=== PATIENT | male | born 1970 | race American Indian/Alaskan Native ===

== ENCOUNTER 2019-08-28 03:45 | Inpatient (IN) | payer OTHER ==
--- NOTE | 2019-08-28 04:52 | XRay Report ---
CHEST 2 VIEW INDICATION / CLINICAL INFORMATION: CP/Cough. COMPARISON: None available. FINDINGS: SUPPORT DEVICES: None. HEART / MEDIASTINUM: No significant abnormality. LUNGS / PLEURA: No significant pulmonary or pleural abnormality.. No pneumothorax. ADDITIONAL FINDINGS: No significant additional findings. IMPRESSION: 1. No acute findings. Signer Name: Thomas Cohen MD Signed: 08/28/2019 4:48 AM Workstation Name: [id number]
[2019-08-28] MEDS ORDERED: NITROGLYCERIN 2% OINT 1 GM TP ONE (06:54)
--- NOTE | 2019-08-28 07:09 | Emergency Department Report ---
ED Chest Pain HPI - General Chief Complaint: Chest Pain Stated Complaint: CHEST PAIN Time Seen by Provider: 08/28/19 06:41 Source: patient Mode of arrival: Ambulatory Limitations: No Limitations - History of Present Illness Initial Comments: This is a 49-year-old male who was apparently noncompliant with his blood pressure medicine. Alternatively, he states that he left his medicine in storage. He states that he spoke with the nurse at the [facility] about his dyspnea on exertion but did not go there concerning his lack of blood pressure medicine. He presents to the emergency department quite hypertensive. He states that he has had dyspnea on exertion for over 2 weeks. Is also had some intermittent chest pain which does not radiate and is not apparently pleuritic. He did not inform me of previous admissions for evaluation of chest pain or hypertension. Apparently he did have an anaphylactoid reaction to IV dye which he did not initially express when I informed him that we would proceed with a CT exam of his chest. In any case he does complain of intermittent and nonpleuritic chest pain. He has traveled recently to the [place]. He does not complain of leg pain or swelling. He states he has a nonproductive cough. His chest pain is not a prominent symptom now. MD Complaint: chest pain -: minutes(s), hour(s), week(s) Onset: during rest Pain Location: substernal Pain Radiation: none Severity: mild, moderate Quality: aching Consistency: intermittent, now resolved Improves With: nothing Worsens With: nothing Context: other (Noncompliance with blood pressure medication) re: dyspnea (Dyspnea mainly on exertion). denies: nausea, vomting, diaphoresis Other Symptoms: cough (Some nonproductive). denies: fever, syncope Treatments Prior to Arrival: none Aspirin use within the Past 7 Days: (0) No - Related Data Allergies Allergy/AdvReac Type Severity Reaction Status Date / Time IVP DYE Allergy Anaphylaxis Uncoded 08/28/19 04:03 Heart Score - HEART Score History: Moderately suspicious EKG: Non-specific Age: 45-65 Risk factors: > 3 risk factors or hx of atherosclerotic disease Troponin: < normal limit HEART Score: 5 - Critical Actions Critical Actions: 4-6 pts:12-16.6% risk of adverse cardiac event. Should be admitted ED Review of Systems ROS: Stated complaint: CHEST PAIN Other details as noted in HPI ED Past Medical Hx - Past Medical History Previous Medical History?: Yes Hx Hypertension: Yes - Surgical History Past Surgical History?: Yes Additional Surgical History: B/L knee , tonsilectomy - Social History Smoking Status: Never Smoker Substance Use Type: None ED Physical Exam - General Limitations: No Limitations ED Course Vital Signs 08/28/19 08/28/19 08/28/19 04:00 06:30 06:46 Temperature 97.4 F L Pulse Rate 98 H 76 87 Respiratory 20 16 23 Rate Blood Pressure 174/128 187/138 O2 Sat by Pulse 96 93 Oximetry - Reevaluation(s) Reevaluation #1: The patient has a history of anaphylactic reaction to contrast in the past. At this point I am getting a nuclear medicine study and a plain CT of his chest. I have also given him Decadron in case a contrast study is necessitated at a later time. The patient will be admitted to the hospital service for further care and evaluation. 08/28/19 09:12 Reevaluation #2: Plan hospitalist stated that the service was capped and to defer to the [address] Crenshaw will be admitting this patient. He has remained clinica lly stable. 08/28/19 11:08 KJ score - Kj Score Age > 65: (0) No Aspirin use within the Past 7 Days: (0) No 3 or more CAD Risk Factors: (1) Yes 2 or more Angina events in past 24 hrs: (0) No Known CAD with more than 50% Stenosis: (0) No Elevated Cardiac Markers: (0) No ST Deviation Greater than 0.5mm: (0) No KJ Score: 1 ED Medical Decision Making - Lab Data Result diagrams: 08/28/19 07:21 08/28/19 07:21 Laboratory Results - last 24 hr 08/28/19 08/28/19 08/28/19 07:21 07:21 07:21 WBC 5.2 RBC 4.75 Hgb 13.5 Hct 40.6 MCV 85 MCH 28 MCHC 33 RDW 14.7 Plt Count 169 Lymph % (Auto) 36.5 H [place] % (Auto) 6.5 Eos % (Auto) 0.5 Baso % (Auto) 0.4 Lymph # 1.9 [place] # 0.3 Eos # 0.0 Baso # 0.0 Seg Neutrophils % 56.1 Seg Neutrophils # 2.9 PT 15.6 H INR 1.22 H APTT 30.6 D-Dimer 1566.81 H Sodium 142 Potassium 4.4 Chloride 107.5 H Carbon Dioxide 19 L Anion Gap 20 BUN 18 Creatinine 1.2 Estimated GFR > 60 BUN/Creatinine Ratio 15 Glucose 106 H Calcium 9.1 Magnesium Total Bilirubin Direct Bilirubin Indirect Bilirubin AST ALT Alkaline Phosphatase Total Creatine Kinase CK-MB (CK-2) CK-MB (CK-2) Rel Index Troponin T < 0.010 NT-Pro-B Natriuret Pep Total Protein Albumin Albumin/Globulin Ratio Urine Color Urine Turbidity Urine pH Ur Specific [place] Urine Protein Urine Glucose (UA) Urine Ketones Urine Blood Urine Nitrite Urine Bilirubin Urine Urobilinogen Ur Leukocyte Esterase Urine WBC (Auto) Urine RBC (Auto) U Epithel Cells (Auto) Hyaline Casts Urine Mucus Urine Opiates Screen Urine Methadone Screen Ur Barbiturates Screen Ur Phencyclidine Scrn Ur Amphetamines Screen U Benzodiazepines Scrn Urine Cocaine Screen U Marijuana (THC) Screen Drugs of Abuse Note 08/28/19 08/28/19 08/28/19 07:21 08:00 08:00 WBC RBC Hgb Hct MCV MCH MCHC RDW Plt Count Lymph % (Auto) [place] % (Auto) Eos % (Auto) Baso % (Auto) Lymph # [place] # Eos # Baso # Seg Neutrophils % Seg Neutrophils # PT INR APTT D-Dimer Sodium Potassium Chloride Carbon Dioxide Anion Gap BUN Creatinine Estimated GFR BUN/Creatinine Ratio Glucose Calcium Magnesium 2.10 Total Bilirubin 1.60 H Direct Bilirubin 0.3 H Indirect Bilirubin 1.3 AST 44 H ALT 47 Alkaline Phosphatase 55 Total Creatine Kinase 86 CK-MB (CK-2) 2.4 CK-MB (CK-2) Rel Index 2.7 Troponin T NT-Pro-B Natriuret Pep 4820 H Total Protein 6.9 Albumin 4.0 Albumin/Globulin Ratio 1.4 Urine Color Yellow Urine Turbidity Clear Urine pH 5.0 Ur Specific [place] 1.026 Urine Protein 30 mg/dl Urine Glucose (UA) Neg Urine Ketones Neg Urine Blood Neg Urine Nitrite Neg Urine Bilirubin Neg Urine Urobilinogen < 2.0 Ur Leukocyte Esterase Neg Urine WBC (Auto) 6.0 Urine RBC (Auto) 1.0 U Epithel Cells (Auto) 1.0 Hyaline Casts 7 Urine Mucus Few Urine Opiates Screen Presumptive negative Urine Methadone Screen Presumptive negative Ur Barbiturates Screen Presumptive negative Ur Phencyclidine Scrn Presumptive negative Ur Amphetamines Screen Presumptive negative U Benzodiazepines Scrn Presumptive negative Urine Cocaine Screen Presumptive negative U Marijuana (THC) Screen Presumptive negative Drugs of Abuse Note Disclamer - EKG Data -: EKG Interpreted by Me EKG shows normal: sinus rhythm, axis, intervals, QRS complexes, ST-T waves Rate: normal - EKG Data Interpretation: LVH (associated repolarization abnormality) - Radiology Data Radiology results: report reviewed (Radiologist says no acute process. To me there is a suggestion of cardiomegaly and CHF.), image reviewed VQ scan was negative (low probability for PE).plan CT of the chest showed CHF and pleural effusions. Critical care attestation.: If time is entered above; I have spent that time in minutes in the direct care of this critically ill patient, excluding procedure time. ED Disposition Clinical Impression: Elevated d-dimer, Malignant hypertension Chest pain Qualifiers: Chest pain type: unspecified Qualified Code(s): R07.9 - Chest pain, unspecified Congestive heart failure, acute Qualifiers: Heart failure type: unspecified Qualified Code(s): I50.9 - Heart failure, unspecified Disposition: -09 OP ADMIT IP TO THIS HOSP Is pt being admited?: Yes Does the pt Need Aspirin: Yes Condition: Stable Instructions: Chest Pain (ED), Hypertension (ED) Referrals: PRIMARY CARE, [Primary Care Provider] - 3-5 Days Time of Disposition: 11:08
[2019-08-28 08:10] LABS: BUN/Creatinine Ratio 15; Blood Urea Nitrogen 18 mg/dL (9-20); Calcium 9.1 mg/dL (8.4-10.2); Hemolysis Index 14
[2019-08-28 08:12] LABS: Creatine Kinase MB 2.4 ng/mL (0.0-4.0)
[2019-08-28 08:14] LABS: Bilirubin,Direct 0.3 mg/dL (0-0.2)
[2019-08-28 08:18] LABS: Basophils % (Auto) 0.4 % (0.0-1.8); Eosinophils % (Auto) 0.5 % (0.0-4.3); Hematocrit 40.6 % (35.5-45.6); Hemoglobin 13.5 gm/dl (11.8-15.2); Lymphocytes # (Auto) 1.9 K/mm3 (1.2-5.4); Lymphocytes % (Auto) 36.5 % (13.4-35.0); Mean Corpuscular HGB Conc 33 % (32-34); Mean Corpuscular Volume 85 fl (84-94); Monocytes # (Auto) 0.3 K/mm3 (0.0-0.8); Monocytes % (Auto) 6.5 % (0.0-7.3); Platelet Count 169 K/mm3 (140-440); Red Blood Count 4.75 M/mm3 (3.65-5.03); Red Cell Distribution Width 14.7 % (13.2-15.2)
[2019-08-28 08:24] LABS: INR 1.22 (0.87-1.13)
[2019-08-28 08:25] LABS: Partial Thromboplastin Time 30.6 Sec. (24.2-36.6)
[2019-08-28] MEDS ORDERED: LORazepam 2 MG/ML VIAL ONE (08:25)
[2019-08-28] MEDS ORDERED: FUROSEMIDE 40 MG/4 ML INJ IV ONE (08:37)
[2019-08-28] MEDS ORDERED: dexAMETHasone 20 MG/5 ML VIAL IV ONE (08:45)
[2019-08-28 08:59] LABS: Bilirubin,Urine NEG (Negative); Blood,Urine NEG (Negative); Color,Urine Yellow (Yellow); Hyaline Casts,Urine 7 /LPF; Mucus,Urine FEW /HPF; Urobilinogen,Urine < 2.0 mg/dL (<2.0)
[2019-08-28 09:08] LABS: Amphetamine Screen,Urine PRESUMPTIVE NEGATIVE; Benzodiazepines Screen,Urine PRESUMPTIVE NEGATIVE; Cannabinoid Screen,Urine PRESUMPTIVE NEGATIVE; Cocaine Screen,Urine PRESUMPTIVE NEGATIVE; Methadone Screen,Urine PRESUMPTIVE NEGATIVE; Opiate Screen,Urine PRESUMPTIVE NEGATIVE
--- NOTE | 2019-08-28 09:36 | Cat Scan Report ---
CT CHEST WITHOUT CONTRAST INDICATION / CLINICAL INFORMATION: cp elevated dimer allergic to contrast. TECHNIQUE: Axial CT images were obtained through the chest without contrast. All CT scans at this location are p erformed using CT dose reduction for ALARA by means of automated exposure control. COMPARISON: No prior CT. Chest radiograph from same date. FINDINGS: HEART: Heart is moderately enlarged. No pericardial effusion. THORACIC AORTA: No significant abnormality. MEDIASTINUM and GELY: No significant abnormality. LUNGS: Mild bibasilar interstitial edema. PLEURA: Small bilateral pleural effusions, right greater than left. No pneumothorax. ADDITIONAL FINDINGS: None. UPPER ABDOMEN: No significant abnormality. SKELETAL SYSTEM: No significant abnormality. IMPRESSION: 1. Cardiomegaly with mild bibasilar edema and small bilateral pleural effusions. Signer Name: Daxa Abdi MD Signed: 08/28/2019 9:31 AM Workstation Name: [id number]
[2019-08-28] MEDS: ASPIRIN 325 MG TAB PO SCH (10:11)
--- NOTE | 2019-08-28 10:44 | Nuclear Medicine Report ---
NUCLEAR MEDICINE VENTILATION/PERFUSION LUNG SCAN INDICATION / CLINICAL INFORMATION: cp elevated dimer. TECHNIQUE: 22.1 mCi of Xe-133 were given by inhalation. 5.08 mCi of Tc-99m MAA were given by IV. COMPARISON: Chest radiograph dated 08/28/19. FINDINGS: VENTILATION: No significant ventilation defects. PERFUSION: No significant perfusion defects. ADDITIONAL FINDINGS: None. IMPRESSION: 1. Low probability for pulmonary embolism. Signer Name: Daxa Abdi MD Signed: 08/28/2019 10:40 AM Workstation Name: [id number]
--- NOTE | 2019-08-28 16:41 | History and Physical Report ---
History of Present Illness Date of examination: 08/28/19 Date of admission: 08/28/19 11:10 Chief complaint: Chest pain 1 day History of present illness: 49-year-old male who was apparently noncompliant with his blood pressure medicine. Alternatively, he states that he left his medicine in storage. He states that he spoke with the nurse at the [facility] about his dyspnea on exertion but did not go there concerning his lack of blood pressure medicine. He presents to the emergency department quite hypertensive. He states that he has had dyspnea on exertion for over 2 weeks. Is also had some intermittent chest pain which does not radiate and is not apparently pleuritic. Past Medical History Previous Medical History?: Yes Hypertension: Yes - Surgical History Past Surgical History?: Yes Additional Surgical History: B/L knee , tonsilectomy - Social History Smoking Status: Never Smoker Substance Use Type: None Review of Systems ROS: Stated complaint: CHEST PAIN Other details as noted in HPI Medications and Allergies Allergies Allergy/AdvReac Type Severity Reaction Status Date / Time IVP DYE Allergy Anaphylaxis Uncoded 08/28/19 04:03 Home Medications Medication Instructions Recorded Confirmed Last Taken Type No Known Home Medications [No 08/28/19 08/28/19 Unknown History Reported Home Medications] Active Meds: Active Medications Aspirin (Aspirin) 325 mg PO QDAY JAVON Last Admin: 08/28/19 10:11 Dose: 325 mg Documented by: Exam - Constitutional Vitals: Temp Pulse Resp BP Pulse Ox 98.0 F 82 20 142/102 96 08/28/19 12:54 08/28/19 12:54 08/28/19 12:54 08/28/19 12:54 08/28/19 12:54 General appearance: Present: no acute distress, well-nourished - EENT Eyes: Present: PERRL ENT: hearing intact, clear oral mucosa - Neck Neck: Present: supple, normal ROM - Respiratory Respiratory effort: normal Respiratory: bilateral: CTA - Cardiovascular Heart rate: 78 Rhythm: regular Heart Sounds: Present: S1 & S2. Absent: rub, click - Extremities Extremities: pulses symmetrical, No edema Peripheral Pulses: within normal limits - Abdominal General gastrointestinal: Present: soft, non-tender, non-distended, normal bowel sounds Male genitourinary: Present: normal - Integumentary Integumentary: Present: clear, warm, dry - Musculoskeletal Musculoskeletal: gait normal, strength equal bilaterally - Psychiatric Psychiatric: appropriate mood/affect, intact judgment & insight - Neurologic Neurologic: CNII-XII intact, moves all extremities JK score - Kj Score Age > 65: (0) No Aspirin use within the Past 7 Days: (0) No 3 or more CAD Risk Factors: (1) Yes 2 or more Angina events in past 24 hrs: (0) No Known CAD with more than 50% Stenosis: (0) No Elevated Cardiac Markers: (0) No ST Deviation Greater than 0.5mm: (0) No KJ Score: 1 Results - Labs CBC & Chem 7: 08/29/19 05:03 08/29/19 05:03 Labs: Laboratory Last Values WBC 5.2 K/mm3 (4.5-11.0) 08/28/19 07:21 RBC 4.75 M/mm3 (3.65-5.03) 08/28/19 07:21 Hgb 13.5 gm/dl (11.8-15.2) 08/28/19 07:21 Hct 40.6 % (35.5-45.6) 08/28/19 07:21 MCV 85 fl (84-94) 08/28/19 07:21 MCH 28 pg (28-32) 08/28/19 07:21 MCHC 33 % (32-34) 08/28/19 07:21 RDW 14.7 % (13.2-15.2) 08/28/19 07:21 Plt Count 169 K/mm3 (140-440) 08/28/19 07:21 Lymph % (Auto) 36.5 % (13.4-35.0) H 08/28/19 07:21 [place] % (Auto) 6.5 % (0.0-7.3) 08/28/19 07:21 Eos % (Auto) 0.5 % (0.0-4.3) 08/28/19 07:21 Baso % (Auto) 0.4 % (0.0-1.8) 08/28/19 07:21 Lymph # 1.9 K/mm3 (1.2-5.4) 08/28/19 07:21 [place] # 0.3 K/mm3 (0.0-0.8) 08/28/19 07:21 Eos # 0.0 K/mm3 (0.0-0.4) 08/28/19 07:21 Baso # 0.0 K/mm3 (0.0-0.1) 08/28/19 07:21 Seg Neutrophils % 56.1 % (40.0-70.0) 08/28/19 07:21 Seg Neutrophils # 2.9 K/mm3 (1.8-7.7) 08/28/19 07:21 PT 15.6 Sec. (12.2-14.9) H 08/28/19 07:21 INR 1.22 (0.87-1.13) H 08/28/19 07:21 APTT 30.6 Sec. (24.2-36.6) 08/28/19 07:21 D-Dimer 1566.81 ng/mlDDU (0-234) H 08/28/19 07:21 Sodium 142 mmol/L (137-145) 08/28/19 07:21 Potassium 4.4 mmol/L (3.6-5.0) 08/28/19 07:21 Chloride 107.5 mmol/L (98-107) H 08/28/19 07:21 Carbon Dioxide 19 mmol/L (22-30) L 08/28/19 07:21 Anion Gap 20 mmol/L 08/28/19 07:21 BUN 18 mg/dL (9-20) 08/28/19 07:21 Creatinine 1.2 mg/dL (0.8-1.5) 08/28/19 07:21 Estimated GFR > 60 ml/min 08/28/19 07:21 BUN/Creatinine Ratio 15 % 08/28/19 07:21 Glucose 106 mg/dL (75-100) H 08/28/19 07:21 Calcium 9.1 mg/dL (8.4-10.2) 08/28/19 07:21 Magnesium 2.10 mg/dL (1.7-2.3) 08/28/19 07:21 Total Bilirubin 1.60 mg/dL (0.1-1.2) H 08/28/19 07:21 Direct Bilirubin 0.3 mg/dL (0-0.2) H 08/28/19 07:21 Indirect Bilirubin 1.3 mg/dL 08/28/19 07:21 AST 44 units/L (5-40) H 08/28/19 07:21 ALT 47 units/L (7-56) 08/28/19 07:21 Alkaline Phosphatase 55 units/L (35-129) 08/28/19 07:21 Total Creatine Kinase 86 units/L (55-170) 08/28/19 07:21 CK-MB (CK-2) 2.4 ng/mL (0.0-4.0) 08/28/19 07:21 CK-MB (CK-2) Rel Index 2.7 (0-4) 08/28/19 07:21 Troponin T < 0.010 ng/mL (0.00-0.029) 08/28/19 12:38 NT-Pro-B Natriuret Pep 4820 pg/mL (0-900) H 08/28/19 07:21 Total Protein 6.9 g/dL (6.3-8.2) 08/28/19 07:21 Albumin 4.0 g/dL (3.9-5) 08/28/19 07:21 Albumin/Globulin Ratio 1.4 % 08/28/19 07:21 Urine Color Yellow (Yellow) 08/28/19 08:00 Urine Turbidity Clear (Clear) 08/28/19 08:00 Urine pH 5.0 (5.0-7.0) 08/28/19 08:00 Ur Specific [place] 1.026 (1.003-1.030) 08/28/19 08:00 Urine Protein 30 mg/dl mg/dL (Negative) 08/28/19 08:00 Urine Glucose (UA) Neg mg/dL (Negative) 08/28/19 08:00 Urine Ketones Neg mg/dL (Negative) 08/28/19 08:00 Urine Blood Neg (Negative) 08/28/19 08:00 Urine Nitrite Neg (Negative) 08/28/19 08:00 Urine Bilirubin Neg (Negative) 08/28/19 08:00 Urine Urobilinogen < 2.0 mg/dL (<2.0) 08/28/19 08:00 Ur Leukocyte Esterase Neg (Negative) 08/28/19 08:00 Urine WBC (Auto) 6.0 /HPF (0.0-6.0) 08/28/19 08:00 Urine RBC (Auto) 1.0 /HPF (0.0-6.0) 08/28/19 08:00 U Epithel Cells (Auto) 1.0 /HPF (0-13.0) 08/28/19 08:00 Hyaline Casts 7 /LPF 08/28/19 08:00 Urine Mucus Few /HPF 08/28/19 08:00 Urine Opiates Screen Presumptive negative 08/28/19 08:00 Urine Methadone Screen Presumptive negative 08/28/19 08:00 Ur Barbiturates Screen Presumptive negative 08/28/19 08:00 Ur Phencyclidine Scrn Presumptive negative 08/28/19 08:00 Ur Amphetamines Screen Presumptive negative 08/28/19 08:00 U Benzodiazepines Scrn Presumptive negative 08/28/19 08:00 Urine Cocaine Screen Presumptive negative 08/28/19 08:00 U Marijuana (THC) Screen Presumptive negative 08/28/19 08:00 Drugs of Abuse Note Disclamer 08/28/19 08:00 - Imaging and Cardiology EKG: report reviewed Assessment and Plan Advance Directives: Yes (FC) VTE prophylaxis?: Chemical Plan of care discussed with patient/family: Yes - Patient Problems (1) Chest pain Current Visit: Yes Status: Acute Qualifiers: Chest pain type: unspecified Qualified Code(s): R07.9 - Chest pain, unspecified Plan to address problem: For stress test on Friday (2) Malignant hypertension Current Visit: Yes Status: Acute Plan to address problem: Started on Valsartan and Coreg and IV Hydralazine prn (3) Congestive heart failure, acute Current Visit: Yes Status: Acute Qualifiers: Heart failure type: combined systolic and diastolic Qualified Code(s): I50. 41 - Acute combined systolic (congestive) and diastolic (congestive) heart failure Plan to address problem: Bibasilar edema on CT chest Will wait for ECHO results for EF IV lasix (4) DVT prophylaxis Current Visit: Yes Status: Acute Plan to address problem: On Heparin and GI prophylaxis
[2019-08-28] MEDS ORDERED: ONDANSETRON 4 MG/2 ML INJ IV PRN (22:41)
[2019-08-28] MEDS ORDERED: oxyCODONE /ACETAMINOPHEN 5-325MG TAB PO PRN (22:41)
[2019-08-28] MEDS ORDERED: ACETAMINOPHEN 325 MG TAB PO PRN (22:41)
[2019-08-28] MEDS ORDERED: HYDROmorphone 1 MG/1 ML INJ IV PRN (22:41)
[2019-08-28] MEDS: carvediloL 6.25 MG TAB PO SCH (23:27)
[2019-08-28] MEDS: VALSARTAN 160MG TAB PO SCH (23:27)
[2019-08-29 05:40] LABS: Basophils % (Auto) 0.1 % (0.0-1.8); Hematocrit 36.9 % (35.5-45.6); Hemoglobin 12.3 gm/dl (11.8-15.2); Lymphocytes # (Auto) 0.9 K/mm3 (1.2-5.4); Lymphocytes % (Auto) 11.1 % (13.4-35.0); Mean Corpuscular HGB Conc 33 % (32-34); Mean Corpuscular Volume 85 fl (84-94); Monocytes # (Auto) 0.5 K/mm3 (0.0-0.8); Monocytes % (Auto) 6.6 % (0.0-7.3); Platelet Count 167 K/mm3 (140-440); Red Blood Count 4.35 M/mm3 (3.65-5.03); Red Cell Distribution Width 14.6 % (13.2-15.2)
[2019-08-29 06:01] LABS: Alanine Aminotransferase 38 units/L (7-56); Albumin 3.6 g/dL (3.9-5); BUN/Creatinine Ratio 20; Blood Urea Nitrogen 26 mg/dL (9-20); Calcium 8.9 mg/dL (8.4-10.2); Hemolysis Index 12
[2019-08-29] MEDS: VALSARTAN 160MG TAB PO SCH (10:26)
[2019-08-29] MEDS: FAMOTIDINE 20 MG/2 ML INJ IV SCH ×2 (10:26→21:14)
[2019-08-29] MEDS: ASPIRIN 325 MG TAB PO SCH (10:26)
[2019-08-29] MEDS: carvediloL 6.25 MG TAB PO SCH ×2 (10:26→21:14)
[2019-08-29] MEDS ORDERED: FLU VACC QUAD 2019-20 (3 YR UP)/PF 60 MCG/0.5 ML SYRINGE IM ONE (12:00)
--- NOTE | 2019-08-29 12:52 | Event Note ---
Date: 08/29/19 Cardiology note dictated 1. Chest pain atypical 2. Hypertension uncontrolled patient is noncompliant 3. Difficulty in breathing 4. Ventricular tachycardia 5. Congestive heart failure Patient is seen for cardiac evaluation. Plan is to give intravenous diuretics, add amlodipine and monitor his blood pressure closely. If stable will obtain a nuclear stress test as well as echocardiogram for further cardiac evaluation. Thank you Dr. Correia for allowing me to participate in the care of this gentleman Dr. VITO Pettit
[2019-08-29] MEDS: FUROSEMIDE 40 MG/4 ML INJ IV SCH (14:25)
[2019-08-29] MEDS: amLODIPine 10 MG TAB PO SCH (14:25)
[2019-08-29] MEDS: guaiFENesin 100 MG/5 ML ORAL LIQD PO PRN ×2 (14:29→21:14)
[2019-08-29] MEDS ORDERED: VALSARTAN 160MG TAB PO SCH ×2 (15:00→22:00)
--- NOTE | 2019-08-29 15:30 | Consultation ---
REASON FOR EVALUATION: Chest pain and difficulty in breathing. HISTORY OF PRESENT ILLNESS: This 49-year-old gentleman is here because of difficulty in breathing that started about 4-6 weeks ago and this has been mostly on exertion and particularly when he has to walk against gradient. The patient is known to have a longstanding history of hypertension and he has been noncompliant with medications. The patient also complained about chest discomfort, which was somewhat atypical. It is intermittent and unrelated to any particular activity. In the Emergency Room, he had a lung scan, which was noted to be negative for pulmonary embolism. The patient had no previous myocardial infarction, congestive heart failure, cardiac murmur or rheumatic fever, or cardiomegaly. The patient claims that until about a month and a half ago, he was in good health with no significant problems and he was exercising regularly. SOCIAL HISTORY: The patient is a nonsmoker and nonalcoholic. FAMILY HISTORY: Negative for coronary artery disease, but positive for hypertension and cerebrovascular accident. REVIEW OF SYSTEMS: HEAD, EYES, EARS, NOSE, THROAT: No symptoms. ENDOCRINE: No history of diabetes. GASTROINTESTINAL: No abdominal pain, nausea, or vomiting. Bowel habits have been regular. No history of peptic ulcer disease or gallbladder disease. GENITOURINARY: No symptoms. CENTRAL NERVOUS SYSTEM: No symptoms. LOCOMOTOR: No symptoms. PHYSICAL EXAMINATION: GENERAL: Adult gentleman, well built, well nourished, in no acute distress. VITAL SIGNS: Blood pressure 160/111, pulse 77, ____ 98. HEAD, EYES, EARS, NOSE AND THROAT: Unremarkable. NECK: Supple. No thyromegaly. Both carotids are palpable and equal. Neck veins are flat. CHEST: Symmetrical. LUNGS: Clear. HEART: S1 and S2 are heard well. No S3. ABDOMEN: Soft, nontender, no hepatosplenomegaly. EXTREMITIES: No edema or calf tenderness. LABORATORY DATA: EKG sinus rhythm, borderline AL interval, nonspecific ST-T changes, left ventricular hypertrophy. Rhythm strips are reviewed. The patient had a 16 beat run of ventricular tachycardia earlier this morning. Chest CT, cardiomegaly with mild bibasilar edema and small bilateral effusions. Lung scan negative for pulmonary embolism. Chest x-ray, no acute findings. WBC 5.2, hemoglobin 13.5, hematocrit 40.6. Sodium 142, potassium 4.4, blood sugar 106, bilirubin 1.6, BUN 18, creatinine 1.2. BNP 4820. IMPRESSION: 1. Chest pain, somewhat atypical. Pulmonary embolism was ruled out. 2. Uncontrolled hypertension. 3. Exertional dyspnea, etiology uncertain. 4. Medication noncompliance. 5. Congestive heart failure. 6. Ventricular tachycardia. TREATMENT: The patient is seen for cardiac evaluation. The patient is known to have chronic hypertension, which is uncontrolled and he has difficulty in breathing. Chest pain itself is somewhat atypical. He also had a run of ventricular tachycardia. Plan is to obtain serum magnesium level, echocardiogram and a nuclear stress test for further cardiac evaluation. We need to adjust the medications to improve his blood pressure. Plan is to add intravenous diuretics also and the patient will be monitored closely. The patient will be monitored and followed closely with you. Thank you, Dr. Correia for allowing me to participate in the care of this gentleman. JOB# [id number] KIRA/NTS
[2019-08-30] MEDS ORDERED: REGADENOSON 0.4 MG/5 ML INJ IV ONE (07:05)
--- NOTE | 2019-08-30 07:36 | Progress Note ---
Assessment and Plan - Patient Problems (1) Chest pain Current Visit: Yes Status: Acute Qualifiers: Chest pain type: unspecified Qualified Code(s): R07.9 - Chest pain, unspecified Plan to address problem: For stress test on Friday (2) Malignant hypertension Current Visit: Yes Status: Acute Plan to address problem: Started on Valsartan and Coreg and IV Hydralazine prn (3) Congestive heart failure, acute Current Visit: Yes Status: Acute Qualifiers: Heart failure type: combined systolic and diastolic Qualified Code(s): I50.41 - Acute combined systolic (congestive) and diastolic (congestive) heart failure Plan to address problem: Bibasilar edema on CT chest Will wait for ECHO results for EF IV lasix (4) DVT prophylaxis Current Visit: Yes Status: Acute Plan to address problem: On Heparin and GI prophylaxis Subjective Date of service: 08/29/19 Principal diagnosis: Chest pain,CHF and Htn energency Interval history: Sx better Objective - Constitutional Vitals: Vital Signs - 12hr 08/29/19 08/29/19 08/29/19 19:39 21:13 21:14 Temperature 98.0 F Pulse Rate 98 H 98 H 98 H Respiratory 18 Rate Blood Pressure 115/72 115/72 115/72 O2 Sat by Pulse 95 Oximetry 08/29/19 08/29/19 08/30/19 22:00 23:22 03:40 Temperature 98.0 F 98.0 F Pulse Rate 97 H 82 72 Respiratory 18 18 Rate Blood Pressure 125/85 116/83 O2 Sat by Pulse 96 96 Oximetry General appearance: Present: no acute distress, well-nourished - EENT Eyes: PERRL, EOM intact ENT: hearing intact, clear oral mucosa Ears: bilateral: normal - Neck Neck: supple, normal ROM - Respiratory Respiratory effort: normal Respiratory: bilateral: CTA - Breasts Breasts: normal - Cardiovascular Heart rate: 78 Rhythm: regular Heart Sounds: Present: S1 & S2. Absent: gallop, rub Extremities: pulses intact, No edema, normal color, Full ROM - Gastrointestinal General gastrointestinal: Present: soft, non-tender, non-distended, normal bowel sounds - Genitourinary Male genitourinary: normal - Integumentary Integumentary: clear, warm, dry - Musculoskeletal Musculoskeletal: 1, strength equal bilaterally - Neurologic Neurologic: moves all extremities - Psychiatric Psychiatric: memory intact, appropriate mood/affect, intact judgment & insight - Labs CBC & Chem 7: 08/29/19 05:03 08/29/19 05:03
[2019-08-30 09:53] LABS: BUN/Creatinine Ratio 20; Blood Urea Nitrogen 22 mg/dL (9-20); Calcium 8.7 mg/dL (8.4-10.2); Hemolysis Index 2
--- NOTE | 2019-08-30 11:21 | Progress Note ---
Assessment and Plan DDimer elevated - VQ scan low prob for PE. Cont present cardiac management, including coreg, losartan, IV lasix. S/p lexiscan MPI stress test today which showed small inferior reversibility, EF 27%. Echo preliminarily shows EF ~35%. Coronary angiography recommended for definitive diagnosis. Indications, potential risks and benefits of LHC reviewed with pt and he is agreeable to proceed with LHC in AM. NPO after MN. Additionally, cardiac defibrillator recommended in setting of CMP and NSVT. Pt currently declines LifeVest and states he would like to re-evaluate AICD candidacy as OP. The patient has been seen in conjunction with Dr. Williamson who agrees with the assessment and plan of care. - Patient Problems (1) Acute heart failure Current Visit: Yes Status: Acute (2) NSVT (nonsustained ventricular tachycardia) Current Visit: Yes Status: Acute (3) Chest pain Current Visit: Yes Status: Resolved Qualifiers: Chest pain type: unspecified Qualified Code(s): R07.9 - Chest pain, unspecified (4) Uncontrolled hypertension Current Visit: Yes Status: Chronic (5) Sleep apnea Current Visit: Yes Status: Chronic Subjective Date of service: 08/30/19 Principal diagnosis: Chest pain,CHF and Htn energency Interval history: pt resting in bed, states SOB is improving, no current chest pain. for stress test today. tele reviewed - in SR HR 80s with 16 beat run NSVT noted overnight, pt asymptomatic. Objective Last Vital Signs Temp 98.0 F 08/30/19 03:40 Pulse 72 08/30/19 03:40 Resp 18 08/30/19 08:07 BP 116/83 08/30/19 03:40 Pulse Ox 96 08/30/19 03:40 - Labs and Meds Comprehensive Metabolic Panel 08/30/19 Range/Units 09:00 Sodium 142 (137-145) mmol/L Potassium 4.0 (3.6-5.0) mmol/L Chloride 104.8 (98-107) mmol/L Carbon Dioxide 23 (22-30) mmol/L BUN 22 H (9-20) mg/dL Creatinine 1.1 (0.8-1.5) mg/dL Glucose 98 (75-100) mg/dL Calcium 8.7 (8.4-10.2) mg/dL - Imaging and Cardiology EKG: report reviewed, image reviewed Pharmacologic stress test: pending Echo: pending - Telemetry EKG Rhythm: Sinus Rhythm
[2019-08-30] MEDS: carvediloL 6.25 MG TAB PO SCH ×2 (12:43→22:34)
[2019-08-30] MEDS: ASPIRIN 325 MG TAB PO SCH (12:43)
[2019-08-30] MEDS: amLODIPine 10 MG TAB PO SCH (12:43)
[2019-08-30] MEDS: FAMOTIDINE 20 MG/2 ML INJ IV SCH ×2 (12:44→22:33)
[2019-08-30] MEDS: FUROSEMIDE 40 MG/4 ML INJ IV SCH (12:44)
--- NOTE | 2019-08-30 19:10 | Progress Note ---
Assessment and Plan Assessment and plan: 49-year-old male who was apparently noncompliant with his blood pressure medicine. Alternatively, he states that he left his medicine in storage. He states that he spoke with the nurse at the [facility] about his dyspnea on exertion but did not go there concerning his lack of blood pressure medicine. He presents to the emergency department quite hypertensive. He states that he has had dyspnea on exertion for over 2 weeks. Is also had some intermittent chest pain which does not radiate and is not apparently pleuritic. CT Chest: Cardiomegaly with mild bibasilar edema and small bilateral pleural effusions. CXR: No acute findings. EF 30-35% Diffused hypo DDimer elevated - VQ scan low prob for PE. S/p lexiscan MPI stress test today which showed small inferior reversibility, EF 27%. Echo preliminarily shows EF ~35% * Discussed with cardiology based on stress test result plan for Coronary angiography * Cont present cardiac management, including coreg, losartan, IV lasix. * Per cardiology cardiac defibrillator recommended in setting of CMP and NSVT. Pt currently declines LifeVest and states he would like to re-evaluate AICD candidacy as OP. * Daily weight, I/O * Replace electrolyte * Continue to require inhouse stay for planned cardiac cath. (1) Acute heart failure presumed systolic (2) NSVT (nonsustained ventricular tachycardia) (3) Atypical Chest pain (4) Uncontrolled hypertension (5) Sleep apnea History Interval history: Patient seen and examined this morning resting comfortably Hospitalist Physical - Physical exam Narrative exam: General appearance: Present: no acute distress, well-nourished - EENT Eyes: PERRL, EOM intact ENT: hearing intact, clear oral mucosa Ears: bilateral: normal - Neck Neck: supple, normal ROM - Respiratory Respiratory effort: normal Respiratory: bilateral: CTA - Breasts Breasts: normal - Cardiovascular Heart rate: 78 Rhythm: regular Heart Sounds: Present: S1 & S2. Absent: gallop, rub Extremities: pulses intact, No edema, normal color, Full ROM - Gastrointestinal General gastrointestinal: Present: soft, non-tender, non-distended, normal bowel sounds - Genitourinary Male genitourinary: normal - Integumentary Integumentary: clear, warm, dry - Musculoskeletal Musculoskeletal: 1, strength equal bilaterally - Neurologic Neurologic: moves all extremities - Psychiatric Psychiatric: memory intact, appropriate mood/affect, intact judgment & insight - Constitutional Vitals: Temp Pulse Resp BP Pulse Ox 98.6 F 100 H 18 150/108 99 08/30/19 09:05 08/30/19 12:43 08/30/19 12:42 08/30/19 12:43 08/30/19 12:42 General appearance: Present: no acute distress, well-nourished KJ score - Kj Score Age > 65: (0) No Aspirin use within the Past 7 Days: (0) No 3 or more CAD Risk Factors: (1) Yes 2 or more Angina events in past 24 hrs: (0) No Known CAD with more than 50% Stenosis: (0) No Elevated Cardiac Markers: (0) No ST Deviation Greater than 0.5mm: (0) No KJ Score: 1 Results - Labs CBC & Chem 7: 08/29/19 05:03 08/30/19 09:00 Labs: Laboratory Last Values WBC 7.8 K/mm3 (4.5-11.0) 08/29/19 05:03 RBC 4.35 M/mm3 (3.65-5.03) 08/29/19 05:03 Hgb 12.3 gm/dl (11.8-15.2) 08/29/19 05:03 Hct 36.9 % (35.5-45.6) 08/29/19 05:03 MCV 85 fl (84-94) 08/29/19 05:03 MCH 28 pg (28-32) 08/29/19 05:03 MCHC 33 % (32-34) 08/29/19 05:03 RDW 14.6 % (13.2-15.2) 08/29/19 05:03 Plt Count 167 K/mm3 (140-440) 08/29/19 05:03 Lymph % (Auto) 11.1 % (13.4-35.0) L 08/29/19 05:03 [place] % (Auto) 6.6 % (0.0-7.3) 08/29/19 05:03 Eos % (Auto) 0.0 % (0.0-4.3) 08/29/19 05:03 Baso % (Auto) 0.1 % (0.0-1.8) 08/29/19 05:03 Lymph # 0.9 K/mm3 (1.2-5.4) L 08/29/19 05:03 [place] # 0.5 K/mm3 (0.0-0.8) 08/29/19 05:03 Eos # 0.0 K/mm3 (0.0-0.4) 08/29/19 05:03 Baso # 0.0 K/mm3 (0.0-0.1) 08/29/19 05:03 Seg Neutrophils % 82.2 % (40.0-70.0) H 08/29/19 05:03 Seg Neutrophils # 6.4 K/mm3 (1.8-7.7) 08/29/19 05:03 PT 15.6 Sec. (12.2-14.9) H 08/28/19 07:21 INR 1.22 (0.87-1.13) H 08/28/19 07:21 APTT 30.6 Sec. (24.2-36.6) 08/28/19 07:21 D-Dimer 1566.81 ng/mlDDU (0-234) H 08/28/19 07:21 Sodium 142 mmol/L (137-145) 08/30/19 09:00 Potassium 4.0 mmol/L (3.6-5.0) 08/30/19 09:00 Chloride 104.8 mmol/L (98-107) 08/30/19 09:00 Carbon Dioxide 23 mmol/L (22-30) 08/30/19 09:00 Anion Gap 18 mmol/L 08/30/19 09:00 BUN 22 mg/dL (9-20) H 08/30/19 09:00 Creatinine 1.1 mg/dL (0.8-1.5) 08/30/19 09:00 Estimated GFR > 60 ml/min 08/30/19 09:00 BUN/Creatinine Ratio 20 % 08/30/19 09:00 Glucose 98 mg/dL (75-100) 08/30/19 09:00 Hemoglobin A1c 5.7 % (4-6) 08/29/19 05:03 Calcium 8.7 mg/dL (8.4-10.2) 08/30/19 09:00 Magnesium 2.10 mg/dL (1.7-2.3) 08/28/19 07:21 Total Bilirubin 1.00 mg/dL (0.1-1.2) 08/29/19 05:03 Direct Bilirubin 0.3 mg/dL (0-0.2) H 08/28/19 07:21 Indirect Bilirubin 1.3 mg/dL 08/28/19 07:21 AST 28 units/L (5-40) 08/29/19 05:03 ALT 38 units/L (7-56) 08/29/19 05:03 Alkaline Phosphatase 60 units/L (35-129) 08/29/19 05:03 Total Creatine Kinase 86 units/L (55-170) 08/28/19 07:21 CK-MB (CK-2) 2.4 ng/mL (0.0-4.0) 08/28/19 07:21 CK-MB (CK-2) Rel Index 2.7 (0-4) 08/28/19 07:21 Troponin T < 0.010 ng/mL (0.00-0.029) 08/29/19 05:03 NT-Pro-B Natriuret Pep 4820 pg/mL (0-900) H 08/28/19 07:21 Total Protein 6.1 g/dL (6.3-8.2) L 08/29/19 05:03 Albumin 3.6 g/dL (3.9-5) L 08/29/19 05:03 Albumin/Globulin Ratio 1.4 % 08/29/19 05:03 Urine Color Yellow (Yellow) 08/28/19 08:00 Urine Turbidity Clear (Clear) 08/28/19 08:00 Urine pH 5.0 (5.0-7.0) 08/28/19 08:00 Ur Specific [place] 1.026 (1.003-1.030) 08/28/19 08:00 Urine Protein 30 mg/dl mg/dL (Negative) 08/28/19 08:00 Urine Glucose (UA) Neg mg/dL (Negative) 08/28/19 08:00 Urine Ketones Neg mg/dL (Negative) 08/28/19 08:00 Urine Blood Neg (Negative) 08/28/19 08:00 Urine Nitrite Neg (Negative) 08/28/19 08:00 Urine Bilirubin Neg (Negative) 08/28/19 08:00 Urine Urobilinogen < 2.0 mg/dL (<2.0) 08/28/19 08:00 Ur Leukocyte Esterase Neg (Negative) 08/28/19 08:00 Urine WBC (Auto) 6.0 /HPF (0.0-6.0) 08/28/19 08:00 Urine RBC (Auto) 1.0 /HPF (0.0-6.0) 08/28/19 08:00 U Epithel Cells (Auto) 1.0 /HPF (0-13.0) 08/28/19 08:00 Hyaline Casts 7 /LPF 08/28/19 08:00 Urine Mucus Few /HPF 08/28/19 08:00 Urine Opiates Screen Presumptive negative 08/28/19 08:00 Urine Methadone Screen Presumptive negative 08/28/19 08:00 Ur Barbiturates Screen Presumptive negative 08/28/19 08:00 Ur Phencyclidine Scrn Presumptive negative 08/28/19 08:00 Ur Amphetamines Screen Presumptive negative 08/28/19 08:00 U Benzodiazepines Scrn Presumptive negative 08/28/19 08:00 Urine Cocaine Screen Presumptive negative 08/28/19 08:00 U Marijuana (THC) Screen Presumptive negative 08/28/19 08:00 Drugs of Abuse Note Disclamer 08/28/19 08:00 Active Medications - Current Medications Current Medications: Generic Name Dose Route Start Last Admin Trade Name Freq PRN Reason Stop Dose Admin Acetaminophen 650 mg 08/28/19 22:41 08/29/19 19:42 Tylenol PO 650 mg Q4H PRN Administration Pain MILD(1-3)/Fever >100.5/BELLA Amlodipine Besylate 10 mg 08/29/19 13:00 08/30/19 12:43 Amlodipine PO 10 mg QDAY JAVON Administration Aspirin 325 mg 08/28/19 10:00 08/30/19 12:43 Aspirin PO 325 mg QDAY JAVON Administration Carvedilol 12.5 mg 08/30/19 12:49 Coreg PO BID JAVON Famotidine 20 mg 08/29/19 10:00 08/30/19 12:44 Pepcid IV 20 mg BID JAVON Administration Furosemide 40 mg 08/29/19 13:00 08/30/19 12:44 Lasix IV 40 mg QDAY JAVON Administration Guaifenesin 200 mg 08/29/19 10:24 08/29/19 21:14 Robitussin PO 200 mg Q4H PRN Administration Cough Hydromorphone HCl 0.5 mg 08/28/19 22:41 Dilaudid IV Q3H PRN Pain , Severe (7-10) Sodium Chloride 500 mls @ 50 mls/hr 08/30/19 13:00 Nacl 0.9% 500 Ml IV 08/30/19 22:59 DIRECT JAVON Losartan Potassium 50 mg 08/31/19 10:00 Cozaar PO QDAY JAVON Ondansetron HCl 4 mg 08/28/19 22:41 Zofran IV Q8H PRN Nausea And Vomiting Oxycodone/Acetaminophen 1 tab 08/28/19 22:41 Percocet 5/325 PO Q6H PRN Pain, Moderate (4-6) Sodium Chloride 10 ml 08/28/19 23:00 08/30/19 12:44 Sodium Chloride Flush Syringe 10 Ml IV 10 ml BID JAVON Administration Sodium Chloride 10 ml 08/28/19 22:41 Sodium Chloride Flush Syringe 10 Ml IV PRN PRN LINE FLUSH
--- NOTE | 2019-08-30 22:16 | Treadmill Report ---
NUCLEAR CARDIAC IMAGING REPORT INDICATION FOR PROCEDURE: Chest pain and shortness of breath, nonsustained ventricular tachycardia. Informed consent was obtained. Treadmill stress testing was performed per protocol. Rest and stress nuclear cardiac imaging were performed following intravenous administration of technetium-99m Myoview per protocol. Gated SPECT imaging demonstrates a post-stress left ventricular ejection fraction of 27% with diffuse left ventricular hypokinesis. The left ventricle is dilated with an end systolic volume of 226 mL. Myocardial perfusion imaging demonstrates no significant cavity change between stress and rest. There is a small to medium size moderately intense partially reversible inferior wall perfusion abnormality. Nuclear cardiac imaging demonstrates severe post-stress left ventricular systolic dysfunction with evidence suggestive of a region of inferior wall myocardial ischemia. The study is consistent with a dilated cardiomyopathy, probably nonischemic in origin. However, underlying coronary artery disease cannot be definitely excluded. JOB# [id number] OCTAVIO/STEPHANIE
[2019-08-30] MEDS: guaiFENesin 100 MG/5 ML ORAL LIQD PO PRN (22:33)
[2019-08-31 05:30] LABS: Basophils % (Auto) 0.5 % (0.0-1.8); Eosinophils # (Auto) 0.1 K/mm3 (0.0-0.4); Eosinophils % (Auto) 2.3 % (0.0-4.3); Hemoglobin 12.3 gm/dl (11.8-15.2); Lymphocytes # (Auto) 1.7 K/mm3 (1.2-5.4); Mean Corpuscular HGB Conc 33 % (32-34); Mean Corpuscular Volume 85 fl (84-94); Monocytes # (Auto) 0.6 K/mm3 (0.0-0.8); Monocytes % (Auto) 8.5 % (0.0-7.3); Platelet Count 152 K/mm3 (140-440); Red Blood Count 4.36 M/mm3 (3.65-5.03); Red Cell Distribution Width 15.1 % (13.2-15.2)
[2019-08-31 05:32] LABS: INR 1.18 (0.87-1.13)
[2019-08-31 05:43] LABS: BUN/Creatinine Ratio 18; Blood Urea Nitrogen 20 mg/dL (9-20); Calcium 8.6 mg/dL (8.4-10.2); Hemolysis Index 19
[2019-08-31] MEDS ORDERED: HYDROCORTISONE SOD SUCC 100 MG/2 ML VIAL IV ONE (06:51)
[2019-08-31] MEDS ORDERED: diphenhydrAMINE 50 MG/ML VIAL IV NR (06:52)
[2019-08-31] MEDS ORDERED: FAMOTIDINE 20 MG/2 ML INJ IV ONE (06:59)
[2019-08-31] MEDS ORDERED: HYDROCORTISONE SOD SUCC 100 MG/2 ML VIAL ONE (06:59)
[2019-08-31] MEDS ORDERED: SODIUM CHLORIDE 0.9% 500 ML 500 ML IV SCH (07:00)
[2019-08-31] MEDS ORDERED: ASPIRIN 325 MG TAB ONE (07:04)
[2019-08-31] MEDS ORDERED: HEPARIN/NS 5000 UNIT/500ML 1,000 ML IR ONE (07:07)
[2019-08-31] MEDS ORDERED: HEPARIN 10,000 UNITS/10 ML VIAL ONE (07:07)
[2019-08-31] MEDS ORDERED: NITROGLYCERIN SYRINGE 0 ML ONE (07:08)
[2019-08-31] MEDS: ASPIRIN 325 MG TAB PO SCH ×2 (07:09→10:32)
[2019-08-31] MEDS: FAMOTIDINE 20 MG/2 ML INJ IV SCH ×3 (07:10→21:49)
[2019-08-31] MEDS: SODIUM CHLORIDE 0.9% 500 ML 500 ML IV SCH ×2 (07:15→07:50)
[2019-08-31] MEDS: MIDAZOLAM 2 MG/2 ML INJ ONE ×2 (07:53→08:05)
[2019-08-31] MEDS: LIDOCAINE (2%) 20 MG/1 ML VIAL 20 ML MDV INFILTRATI ONE ×2 (07:53→08:09)
[2019-08-31] MEDS: fentaNYL 100 MCG/2 ML INJ ONE ×2 (07:53→08:05)
[2019-08-31] MEDS: VERAPAMIL 5 MG/2 ML INJ ONE ×2 (07:54→08:09)
--- NOTE | 2019-08-31 08:47 | Cardiac Catherization Report ---
CATHETERIZATION REPORT INDICATION FOR PROCEDURE: This is a 49-year-old -Citizen Of The [place] gentleman with longstanding hypertension, noncompliant with medication, admitted with acute heart failure in addition to uncontrolled hypertension. Presently, also has abnormal myocardial perfusion imaging showing possible inferior ischemia. Because of this, the patient is scheduled for cardiac catheterization for definitive diagnosis and treatment. The patient has a history of anaphylactic reaction with the IVP DYE. Hence, the patient was premedicated with IV Solu-Cortef, IV Pepcid and IV Benadryl. DESCRIPTION OF PROCEDURE: After explaining the procedure, potential complications and alternatives of therapy, the patient was taken to the catheterization laboratory in a fasting condition. The patient was evaluated for appropriateness for moderate sedation and he was felt to be appropriate candidate. Received 25 mg of Benadryl as a part of the LAD protocol in addition to receiving IV Versed and fentanyl. Subsequently, local anesthesia was given in the right wrist area. Right radial artery access was obtained with 21-gauge arterial puncture needle. The patient received 5 mg of intra-arterial verapamil and 3000 units of heparin. Using 5-Malaysian multipurpose catheter, left ventriculogram was performed in THURMAN projection using hand injection and also subsequently angiograms of the right coronary artery were obtained. A 5-Malaysian TIG catheter was used to obtain the angiograms of the left coronary artery in multiple views. At the end of the procedure, catheter and sheath were removed. The patient tolerated the procedure well. No untoward complications or any allergic reaction noted. The patient was breathing normally, communicating normally without any focal deficits. The patient's IV sedation started at 08:05 a.m. and ended at 8:16 a.m. Right radial band was applied with good hemostasis and the patient was transferred to the room in stable condition. Following findings were noted. HEMODYNAMICS: 1. Opening aortic pressure 136/105. Left ventricular pressure 136/39. No gradient across the aortic valve. Estimated ejection fraction 25%. 2. Left ventriculogram done in THURMAN projection using hand injection showed moderately dilated left ventricle with severe hypokinesis. Ejection fraction was felt to be around 25%. Mitral regurgitation could not be evaluated because of limited amount of dye injected. 3. Right coronary artery dominant vessel arises normally from right coronary cusp. Angiographically smooth and normal. 4. Left coronary artery arises normally from left coronary cusp. Left main is short, smooth, and normal. LAD and its branches and circumflex artery and its branch are angiographically smooth and normal. FINAL IMPRESSION: Dilated left ventricle with severe left ventricular dysfunction, ejection fraction 25%. Normal coronary anatomy. Would continue medical therapy and risk factor modification and the patient did not have any evidence of allergic reaction and it is to be noted the patient received prophylactic IV Solu-Cortef, IV Pepcid, and IV Benadryl. The patient was transferred to the room in stable condition. Findings were explained to the patient. The patient will be continued on medical therapy. JOB# [id number] TRAE/NTS
[2019-08-31] MEDS ORDERED: LOSARTAN 50 MG TAB PO SCH (10:00)
[2019-08-31] MEDS: FUROSEMIDE 40 MG/4 ML INJ IV SCH (10:34)
[2019-08-31] MEDS: amLODIPine 10 MG TAB PO SCH (10:35)
[2019-08-31] MEDS: carvediloL 6.25 MG TAB PO SCH ×2 (10:35→21:49)
--- NOTE | 2019-08-31 11:50 | Progress Note ---
Assessment and Plan S/p C today which showed normal coronaries, EF 25%. The etiology of pt's CMP is unclear. We will plan for OP cardiac MRI (with either [facility] or [facility]) for further evaluation. Convert losartan to Entresto. Cont coreg. Pt appears to be nearing/at euvolemia. Convert IV lasix to PO lasix 40mg daily. Additional NSVT noted overnight. Cardiac defibrillator once again recommended in setting of CMP and NSVT. Pt continues to decline LifeVest and states he would like to re-evaluate AICD candidacy as OP. Anticipate d/c home in AM pending pt tolerates medication changes. The patient has been seen in conjunction with Dr. Williamson who agrees with the assessment and plan of care. - Patient Problems (1) Acute HFrEF (heart failure with reduced ejection fraction) Current Visit: Yes Status: Acute (2) Non-ischemic cardiomyopathy Current Visit: Yes Status: Acute (3) Normal coronary arteries Current Visit: Yes Status: Chronic (4) NSVT (nonsustained ventricular tachycardia) Current Visit: Yes Status: Acute (5) Uncontrolled hypertension Current Visit: Yes Status: Chronic (6) Sleep apnea Current Visit: Yes Status: Chronic Subjective Date of service: 08/31/19 Principal diagnosis: Chest pain,CHF and Htn energency Interval history: pt resting in bed, no current complaints. seen s/p [facility]. tele reviewed - in SR HR 70s with 20 beat run NSVT noted overnight, pt asymptomatic. Objective Last Vital Signs Temp 98.8 F 08/31/19 06:44 Pulse 75 08/31/19 10:35 Resp 15 08/31/19 06:44 BP 124/84 08/31/19 10:35 Pulse Ox 99 08/31/19 06:44 - Physical Examination General: No Apparent Distress HEENT: Positive: PERRL, Normocephaly, Mucus Membranes Moist Neck: Positive: neck supple, trachea midline Cardiac: Positive: Reg Rate and Rhythm, S1/S2 Lungs: Positive: Decreased Breath Sounds Neuro: Positive: Grossly Intact Abdomen: Negative: Tender Skin: Negative: Rash Musculoskeletal: No Pain Extremities: Absent: edema - Labs and Meds Coagulation 08/31/19 Range/Units 04:36 PT 15.2 H (12.2-14.9) Sec. INR 1.18 H (0.87-1.13) CBC 08/31/19 Range/Units 04:36 WBC 6.5 (4.5-11.0) K/mm3 RBC 4.36 (3.65-5.03) M/mm3 Hgb 12.3 (11.8-15.2) gm/dl Hct 37.0 (35.5-45.6) % Plt Count 152 (140-440) K/mm3 Lymph # 1.7 (1.2-5.4) K/mm3 [place] # 0.6 (0.0-0.8) K/mm3 Eos # 0.1 (0.0-0.4) K/mm3 Baso # 0.0 (0.0-0.1) K/mm3 Comprehensive Metabolic Panel 08/31/19 Range/Units 04:36 Sodium 142 (137-145) mmol/L Potassium 4.0 (3.6-5.0) mmol/L Chloride 102.7 (98-107) mmol/L Carbon Dioxide 27 (22-30) mmol/L BUN 20 (9-20) mg/dL Creatinine 1.1 (0.8-1.5) mg/dL Glucose 107 H (75-100) mg/dL Calcium 8.6 (8.4-10.2) mg/dL - Imaging and Cardiology EKG: report reviewed, image reviewed Echo: report reviewed Cardiac cath: report reviewed - Telemetry EKG Rhythm: Sinus Rhythm
[2019-08-31] MEDS ORDERED: PNEUMOCOCCAL 23 Valent 0.5 ML VIAL IM ONE (12:00)
--- NOTE | 2019-08-31 17:23 | Progress Note ---
Assessment and Plan Assessment and plan: 49-year-old male who was apparently noncompliant with his blood pressure medicine. Alternatively, he states that he left his medicine in storage. He states that he spoke with the nurse at the [facility] about his dyspnea on exertion but did not go there concerning his lack of blood pressure medicine. He presents to the emergency department quite hypertensive. He states that he has had dyspnea on exertion for over 2 weeks. Is also had some intermittent chest pain which does not radiate and is not apparently pleuritic. 08/30/19- Underwent stress test Which was abnormal. CT Chest: Cardiomegaly with mild bibasilar edema and small bilateral pleural effusions. CXR: No acute findings. EF 30-35% Diffused hypo DDimer elevated - VQ scan low prob for PE. S/p lexiscan MPI stress test today which showed small inferior reversibility, EF 27%. Echo preliminarily shows EF ~35% * Discussed with cardiology based on stress test result plan, underwent LHC today which showed normal coronaries, EF 25%. The etiology of pt's CMP is unclear. We will plan for OP cardiac MRI (with either [facility] or [place]) for further evaluation per cardiology documentation. * Cont present cardiac management, including coreg, losartan, IV lasix changed to lasix. * Per cardiology cardiac defibrillator recommended in setting of CMP and NSVT. Pt currently declines LifeVest and states he would like to re-evaluate AICD candidacy as OP. * Daily weight, I/O * Replace electrolyte (1) Acute heart failure presumed systolic (2) NSVT (nonsustained ventricular tachycardia) (3) Atypical Chest pain (4) Uncontrolled hypertension (5) Sleep apnea (6) Non Ischemic Cardiomyopathy History Interval history: Patient seen and examined this morning resting comfortably, no new complaints. Underwent cardiac catheterization doing well post cardiac cath to right radial side. 20 beat NSVT noted overnight clinically stable. Hospitalist Physical - Physical exam Narrative exam: VITAL SIGNS: Reviewed. GENERAL: The patient appears normally developed, Vital signs as documented. HEAD: No signs of head trauma. EYES: Pupils are equal. Extraocular motions intact. EARS: Hearing grossly intact. MOUTH: Oropharynx is normal. NECK: No adenopathy, no JVD. CHEST: Chest with clear breath sounds bilaterally. No wheezes, rales, or rhonchi. CARDIAC: Regular rate and rhythm. S1 and S2, 3/5 PATIENCE, gallops, or rubs. VASCULAR: No Edema. Peripheral pulses normal and equal in all extremities. ABDOMEN: Soft, non tender and non distended. No rebound or guarding, and no masses palpated. Bowel Sounds normal. MUSCULOSKELETAL: Good range of motion of all major joints. Extremities without clubbing, cyanosis or edema. NEUROLOGIC EXAM: Alert and oriented x 3 No focal sensory or strength deficits. Speech normal. Follows commands. PSYCHIATRIC: Mood normal. SKIN: detial exam as documented in skin assessment - Constitutional Vitals: Temp Pulse Resp BP Pulse Ox 98.8 F 75 20 124/84 99 08/31/19 06:44 08/31/19 10:35 08/31/19 10:00 08/31/19 10:35 08/31/19 10:00 General appearance: Present: no acute distress, well-nourished KJ score - Kj Score Age > 65: (0) No Aspirin use within the Past 7 Days: (0) No 3 or more CAD Risk Factors: (1) Yes 2 or more Angina events in past 24 hrs: (0) No Known CAD with more than 50% Stenosis: (0) No Elevated Cardiac Markers: (0) No ST Deviation Greater than 0.5mm: (0) No KJ Score: 1 Results - Labs CBC & Chem 7: 08/31/19 04:36 08/31/19 04:36 Labs: Laboratory Last Values WBC 6.5 K/mm3 (4.5-11.0) 08/31/19 04:36 RBC 4.36 M/mm3 (3.65-5.03) 08/31/19 04:36 Hgb 12.3 gm/dl (11.8-15.2) 08/31/19 04:36 Hct 37.0 % (35.5-45.6) 08/31/19 04:36 MCV 85 fl (84-94) 08/31/19 04:36 MCH 28 pg (28-32) 08/31/19 04:36 MCHC 33 % (32-34) 08/31/19 04:36 RDW 15.1 % (13.2-15.2) 08/31/19 04:36 Plt Count 152 K/mm3 (140-440) 08/31/19 04:36 Lymph % (Auto) 27.0 % (13.4-35.0) 08/31/19 04:36 Gregg % (Auto) 8.5 % (0.0-7.3) H 08/31/19 04:36 Eos % (Auto) 2.3 % (0.0-4.3) 08/31/19 04:36 Baso % (Auto) 0.5 % (0.0-1.8) 08/31/19 04:36 Lymph # 1.7 K/mm3 (1.2-5.4) 08/31/19 04:36 Gregg # 0.6 K/mm3 (0.0-0.8) 08/31/19 04:36 Eos # 0.1 K/mm3 (0.0-0.4) 08/31/19 04:36 Baso # 0.0 K/mm3 (0.0-0.1) 08/31/19 04:36 Seg Neutrophils % 61.7 % (40.0-70.0) 08/31/19 04:36 Seg Neutrophils # 4.0 K/mm3 (1.8-7.7) 08/31/19 04:36 PT 15.2 Sec. (12.2-14.9) H 08/31/19 04:36 INR 1.18 (0.87-1.13) H 08/31/19 04:36 APTT 30.6 Sec. (24.2-36.6) 08/28/19 07:21 D-Dimer 1566.81 ng/mlDDU (0-234) H 08/28/19 07:21 Sodium 142 mmol/L (137-145) 08/31/19 04:36 Potassium 4.0 mmol/L (3.6-5.0) 08/31/19 04:36 Chloride 102.7 mmol/L (98-107) 08/31/19 04:36 Carbon Dioxide 27 mmol/L (22-30) 08/31/19 04:36 Anion Gap 16 mmol/L 08/31/19 04:36 BUN 20 mg/dL (9-20) 08/31/19 04:36 Creatinine 1.1 mg/dL (0.8-1.5) 08/31/19 04:36 Estimated GFR > 60 ml/min 08/31/19 04:36 BUN/Creatinine Ratio 18 % 08/31/19 04:36 Glucose 107 mg/dL (75-100) H 08/31/19 04:36 POC Glucose 94 (70-105) 08/31/19 05:58 Hemoglobin A1c 5.7 % (4-6) 08/29/19 05:03 Calcium 8.6 mg/dL (8.4-10.2) 08/31/19 04:36 Magnesium 2.10 mg/dL (1.7-2.3) 08/28/19 07:21 Total Bilirubin 1.00 mg/dL (0.1-1.2) 08/29/19 05:03 Direct Bilirubin 0.3 mg/dL (0-0.2) H 08/28/19 07:21 Indirect Bilirubin 1.3 mg/dL 08/28/19 07:21 AST 28 units/L (5-40) 08/29/19 05:03 ALT 38 units/L (7-56) 08/29/19 05:03 Alkaline Phosphatase 60 units/L (35-129) 08/29/19 05:03 Total Creatine Kinase 86 units/L (55-170) 08/28/19 07:21 CK-MB (CK-2) 2.4 ng/mL (0.0-4.0) 08/28/19 07:21 CK-MB (CK-2) Rel Index 2.7 (0-4) 08/28/19 07:21 Troponin T < 0.010 ng/mL (0.00-0.029) 08/29/19 05:03 NT-Pro-B Natriuret Pep 4820 pg/mL (0-900) H 08/28/19 07:21 Total Protein 6.1 g/dL (6.3-8.2) L 08/29/19 05:03 Albumin 3.6 g/dL (3.9-5) L 08/29/19 05:03 Albumin/Globulin Ratio 1.4 % 08/29/19 05:03 Urine Color Yellow (Yellow) 08/28/19 08:00 Urine Turbidity Clear (Clear) 08/28/19 08:00 Urine pH 5.0 (5.0-7.0) 08/28/19 08:00 Ur Specific Fitz[place]illiam 1.026 (1.003-1.030) 08/28/19 08:00 Urine Protein 30 mg/dl mg/dL (Negative) 08/28/19 08:00 Urine Glucose (UA) Neg mg/dL (Negative) 08/28/19 08:00 Urine Ketones Neg mg/dL (Negative) 08/28/19 08:00 Urine Blood Neg (Negative) 08/28/19 08:00 Urine Nitrite Neg (Negative) 08/28/19 08:00 Urine Bilirubin Neg (Negative) 08/28/19 08:00 Urine Urobilinogen < 2.0 mg/dL (<2.0) 08/28/19 08:00 Ur Leukocyte Esterase Neg (Negative) 08/28/19 08:00 Urine WBC (Auto) 6.0 /HPF (0.0-6.0) 08/28/19 08:00 Urine RBC (Auto) 1.0 /HPF (0.0-6.0) 08/28/19 08:00 U Epithel Cells (Auto) 1.0 /HPF (0-13.0) 08/28/19 08:00 Hyaline Casts 7 /LPF 08/28/19 08:00 Urine Mucus Few /HPF 08/28/19 08:00 Urine Opiates Screen Presumptive negative 08/28/19 08:00 Urine Methadone Screen Presumptive negative 08/28/19 08:00 Ur Barbiturates Screen Presumptive negative 08/28/19 08:00 Ur Phencyclidine Scrn Presumptive negative 08/28/19 08:00 Ur Amphetamines Screen Presumptive negative 08/28/19 08:00 U Benzodiazepines Scrn Presumptive negative 08/28/19 08:00 Urine Cocaine Screen Presumptive negative 08/28/19 08:00 U Marijuana (THC) Screen Presumptive negative 08/28/19 08:00 Drugs of Abuse Note Disclamer 08/28/19 08:00 Active Medications - Current Medications Current Medications: Generic Name Dose Route Start Last Admin Trade Name Freq PRN Reason Stop Dose Admin Acetaminophen 650 mg 08/28/19 22:41 08/29/19 19:42 Tylenol PO 650 mg Q4H PRN Administration Pain MILD(1-3)/Fever >100.5/BELLA Carvedilol 12.5 mg 08/30/19 12:49 08/31/19 10:35 Coreg PO 12.5 mg BID JAVON Administration Famotidine 20 mg 08/29/19 10:00 08/31/19 10:33 Pepcid IV Not Given BID [facility] Furosemide 40 mg 09/01/19 06:00 Lasix PO DAILY@0600 [facility] Guaifenesin 200 mg 08/29/19 10:24 08/30/19 22:33 Robitussin PO 200 mg Q4H PRN Administration Cough Hydromorphone HCl 0.5 mg 08/28/19 22:41 Dilaudid IV Q3H PRN Pain , Severe (7-10) Sodium Chloride 500 mls @ 50 mls/hr 08/31/19 07:00 Nacl 0.9% 500 Ml IV DIRECT JAVON Ondansetron HCl 4 mg 08/28/19 22:41 Zofran IV Q8H PRN Nausea And Vomiting Oxycodone/Acetaminophen 1 tab 08/28/19 22:41 Percocet 5/325 PO Q6H PRN Pain, Moderate (4-6) Sodium Chloride 10 ml 08/28/19 23:00 08/31/19 10:36 Sodium Chloride Flush Syringe 10 Ml IV 10 ml BID JAVON Administration Sodium Chloride 10 ml 08/28/19 22:41 Sodium Chloride Flush Syringe 10 Ml IV PRN PRN LINE FLUSH Nutrition/Malnutrition Assess - Dietary Evaluation Nutrition/Malnutrition Findings: Nutrition Notes Start: 08/31/19 13:17 Freq: Status: Active Protocol: Document 08/31/19 13:17 CC (Rec: 08/31/19 13:28 CC [email or web address]) Co-Sign 08/31/19 13:17 Nutrition Notes Need for Assessment generated from: MD Order,Education Initial or Follow up Brief Note Current Diagnosis Hypertension,Heart Failure Current Diet Cardiac Labs/Tests Reviewed Pertinent Medications Lasix Height 6 ft 4 in [place] Body Weight (kg) 91.81 Subjective/Other Information Consult for HF diet education. Pt reported he did not have previous diet education for HF . Went over HF diet education and reccomendations w/ pt Burn Absent Trauma Absent GI Symptoms None #1 Nutrition Diagnosis Food and nutrition-related knowledge deficit Etiology No previous diet education for HF As Evidenced by Signs and Symptoms Consult for diet education, pt report of no previous diet education Nutrition Intervention Teaching Recipient Patient Learning Readiness Good Teaching Methods Discussion,Handout Response to Teaching Verbalize understanding Education Handouts Provided Heart Failure Nutrition Therapy Barriers to Learning No Barriers RD phone number provided Yes Patient aware of follow up options Yes Revisit per MD consult or patient Sign Off request:
[2019-08-31 20:50] VITALS: BP 144/92
[2019-08-31] MEDS: guaiFENesin 100 MG/5 ML ORAL LIQD PO PRN (21:53)
[2019-09-01] MEDS ORDERED: FUROSEMIDE 40 MG TAB PO SCH (06:00)
[2019-09-01] MEDS: SACUBITRIL/VALSARTAN 24-26 MG TAB PO SCH ×2 (06:02→09:45)
[2019-09-01] MEDS: carvediloL 6.25 MG TAB PO SCH (09:42)
--- NOTE | 2019-09-01 10:38 | Discharge Summary ---
Providers - Providers Date of Admission: 08/28/19 11:10 Attending physician: LOS ALMEIDA MD 08/28/19 11:11 Consult to Cardiology [CONS] Urgent Consulting Provider: JERO PATEL Reason For Exam: Chest pain, malignant hypertension 08/31/19 11:54 Consult to Cardiac Rehabilitation [CONS] Routine Reason For Exam: Cardiac Rehab Evaluation Consult to Dietitian/Nutrition [CONS] Routine Physician Instructions: HF diet Reason For Exam: Reason for Consult: Diet education Primary care physician: MANAGER CHEMICAL Hospitalization Reason for admission: Chest pain Condition: Stable Hospital course: 49-year-old male who was apparently noncompliant with his blood pressure medicine. Alternatively, he states that he left his medicine in storage. He states that he spoke with the nurse at the [facility] about his dyspnea on exertion but did not go there concerning his lack of blood pressure medicine. He presents to the emergency department quite hypertensive. He states that he has had dyspnea on exertion for over 2 weeks. Is also had some intermittent chest pain which does not radiate and is not apparently pleuritic. 08/30/19- Underwent stress test Which was abnormal. 08/31: Patient underwent cardiac catheterization which showed normal coronaries, EF 25%. The etiology of pt's CMP is unclear. We will plan for OP cardiac MRI (w ith either [facility] or [place]) for further evaluation per cardiology documentation. LifeVest recommendation was made to the patient based on cardiomyopathy the patient declined and would like to follow-up with his doctors [facility] for outpatient cardiac MRI for further evaluation. He understands the risk associated and verbalized it. Is clinically stable at this point medications were adjusted and monitored overnight to ensure improvement and he has been discharged with medications as prescribed. CT Chest: Cardiomegaly with mild bibasilar edema and small bilateral pleural effusions. CXR: No acute findings. EF 30-35% Diffused hypo DDimer elevated - VQ scan low prob for PE. S/p lexiscan MPI stress test today which showed small inferior reversibility, EF 27%. Echo preliminarily shows EF ~35% * Discussed with cardiology based on stress test result plan, underwent LHC today * Cont present cardiac management, including coreg, losartan, IV lasix changed to lasix. * Per cardiology cardiac defibrillator recommended in setting of CMP and NSVT. Pt currently declines LifeVest and states he would like to re-evaluate AICD candidacy as OP. * Daily weight, I/O * Replace electrolyte (1) Acute congestive heart failure systolic (2) NSVT (nonsustained ventricular tachycardia) (3) Atypical Chest pain (4) Uncontrolled hypertension (5) Sleep apnea (6) Non Ischemic Cardiomyopathy Disposition: - TO HOME OR SELFCARE Time spent for discharge: 35 minutes Core Measure Documentation - Palliative Care Palliative Care/ Comfort Measures: Not Applicable - Core Measures Any of the following diagnoses?: none Exam - Physical Exam Narrative exam: VITAL SIGNS: Reviewed. GENERAL: The patient appears normally developed, Vital signs as documented. HEAD: No signs of head trauma. EYES: Pupils are equal. Extraocular motions intact. EARS: Hearing grossly intact. MOUTH: Oropharynx is normal. NECK: No adenopathy, no JVD. CHEST: Chest with clear breath sounds bilaterally. No wheezes, rales, or rhonchi. CARDIAC: Regular rate and rhythm. S1 and S2, 3/5 PATIENCE, gallops, or rubs. VASCULAR: No Edema. Peripheral pulses normal and equal in all extremities. ABDOMEN: Soft, non tender and non distended. No rebound or guarding, and no masses palpated. Bowel Sounds normal. MUSCULOSKELETAL: Good range of motion of all major joints. Extremities without clubbing, cyanosis or edema. NEUROLOGIC EXAM: Alert and oriented x 3 No focal sensory or strength deficits. Speech normal. Follows commands. PSYCHIATRIC: Mood normal. SKIN: detial exam as documented in skin assessment - Constitutional Vitals: Temp Pulse Resp BP Pulse Ox 98.2 F 78 20 144/92 99 08/31/19 20:29 09/01/19 09:42 08/31/19 22:00 08/31/19 21:49 08/31/19 22:00 Plan Activity: advance as tolerated, fall precautions Diet: low fat, low cholesterol Special Instructions: record daily weights, record daily BP diary Follow up with: PRIMARY CARE, [Primary Care Provider] - 3-5 Days JERO PATEL MD [Staff Physician] - 7 Days Prescriptions: carvediloL [Coreg] 12.5 mg PO BID #60 tablet Sacubitril/Valsartan [Entresto 24 - 26 mg] 1 each PO BID #60 tablet Furosemide [Lasix TAB] 40 mg PO DAILY@0600 #30 tablet
--- NOTE | 2019-09-01 11:30 | Progress Note ---
Assessment and Plan Currently stable cardiac status. Cont Coreg, Entresto, PO lasix. Pt continues to decline LifeVest and states he would like to readdress AICD candidacy as OP. Additionally, pt would benefit from OP cardiac MRI for further evaluation of CMP etiology. However, he is [facility] and thus we are unable to arrange this for him. Pt verbalizes understanding of our recommendations and will f/u with [facility]. Recommend pt follow up with [facility] (or in our office with Dr. VITO Pettit pending [facility] approval) within 3-5 days of discharge. The patient has been seen in conjunction with Dr. Williamson who agrees with the assessment and plan of care. - Patient Problems (1) Acute HFrEF (heart failure with reduced ejection fraction) Current Visit: Yes Status: Acute (2) Non-ischemic cardiomyopathy Current Visit: Yes Status: Chronic (3) Normal coronary arteries Current Visit: Yes Status: Chronic (4) NSVT (nonsustained ventricular tachycardia) Current Visit: Yes Status: Acute (5) Uncontrolled hypertension Current Visit: Yes Status: Chronic (6) Sleep apnea Current Visit: Yes Status: Chronic Subjective Date of service: 09/01/19 Principal diagnosis: Chest pain,CHF and Htn energency Interval history: pt resting in bed, no current complaints. tele reviewed - in SR, 3 beat NSVT overnight, pt asymptomatic. Objective Last Vital Signs Temp 98.2 F 08/31/19 20:29 Pulse 78 09/01/19 09:42 Resp 20 08/31/19 22:00 BP 144/92 08/31/19 21:49 Pulse Ox 99 08/31/19 22:00 - Physical Examination General: No Apparent Distress HEENT: Positive: PERRL, Normocephaly, Mucus Membranes Moist Neck: Positive: neck supple, trachea midline Cardiac: Positive: Reg Rate and Rhythm, S1/S2 Lungs: Positive: Decreased Breath Sounds Neuro: Positive: Grossly Intact Abdomen: Negative: Tender Skin: Negative: Rash Incision: Cardiac Cath Site (RRA c/d/i, no bleeding or hematoma) Musculoskeletal: No Pain Extremities: Absent: edema - Imaging and Cardiology EKG: report reviewed, image reviewed Echo: report reviewed Cardiac cath: report reviewed - Telemetry EKG Rhythm: Sinus Rhythm
[2019-09-01] MEDS: guaiFENesin 100 MG/5 ML ORAL LIQD PO PRN (13:28)
[2019-09-01] MEDS: FAMOTIDINE 20 MG/2 ML INJ IV SCH (13:42)
== END 2019-09-01 14:48 | disposition home or self-care (01) | DRG 287 ==
LOC: ED 03:45 → 4A 11:10
PROVIDERS: ADMIT Internal Medicine; ATTEND Internal Medicine
PROC: 4A023N7 Measurement of Cardiac Sampling and Pressure, Left Heart, Percutaneous Approach (ICD-10-PCS; principal; 2019-08-31)
PROC: B211YZZ Fluoroscopy of Multiple Coronary Arteries using Other Contrast (ICD-10-PCS; 2019-08-31)
PROC: B215YZZ Fluoroscopy of Left Heart using Other Contrast (ICD-10-PCS; 2019-08-31)
PROC: 3E0234Z Introduction of Serum, Toxoid and Vaccine into Muscle, Percutaneous Approach (ICD-10-PCS; 2019-08-31)
DX: I11.0 Hypertensive heart disease with heart failure (principal); I16.1 Hypertensive emergency; I47.2 Ventricular tachycardia; I50.41 Acute combined systolic (congestive) and diastolic (congestive) heart failure; I42.8 Other cardiomyopathies; G47.30 Sleep apnea, unspecified; Z23 Encounter for immunization; Z91.14 Patient's other noncompliance with medication regimen; Z90.49 Acquired absence of other specified parts of digestive tract; Z91.041 Radiographic dye allergy status
CPT/HCPCS: 36415; 71046; 71250; 78452; 78582; 80048; 80053; 80076; 80307; 81001; 82550; 82553; 82962; 83036; 83735; 83880; 84484; 85025; 85379; 85610; 85730; 90686; 90732; 93005; 93010; 93017; 93306; 93458; 96374; 96375; G0378; A9502; A9540; A9558; C1887; C1894; J1100; J1200; J1644; J1720; J1940; J2060; J2250; J2785; J3010; J7040; Q9967